=== PATIENT | male | born 1970 | race Two or more races ===

== ENCOUNTER 2021-07-04 07:31 | Emergency (ER) | payer OTHER ==
[~2021-07-04] VITALS: Ht 177.8 cm; Wt 104.3 kg
[2021-07-04] MEDS ORDERED: PLAVIX75 MG PO (07:43)
[2021-07-04] MEDS ORDERED: ADULT LOW DOSE81 M1 PO (07:43)
[2021-07-04] MEDS ORDERED: TOPROL XL25 M1 PO (07:44)
[2021-07-04] MEDS ORDERED: NITRO-TIME2.5 MG (07:44)
[2021-07-04] MEDS ORDERED: ATORVASTATIN CA20 MG PO (07:45)
[2021-07-04] MEDS ORDERED: ZESTRIL2.5 MG PO (07:45)
== END 2021-07-04 14:23 | disposition home or self-care (01) ==
LOC: ER 07:31
DX: K52.89 Other specified noninfective gastroenteritis and colitis (principal); R10.31 Right lower quadrant pain; Z20.822 Contact with and (suspected) exposure to COVID-19

== ENCOUNTER 2023-07-17 13:58 | Emergency (ER) | payer OTHER ==
[~2023-07-17] VITALS: Ht 177.8 cm; Wt 103.0 kg
[~2023-07-17 13:58] MED LIST: ADULT LOW DOSE81 M1 PO; ATORVASTATIN CA20 MG PO; NITRO-TIME2.5 MG; PLAVIX75 MG PO; TOPROL XL25 M1 PO; ZESTRIL2.5 MG PO
[2023-07-17 16:42] LABS: HEMATOCRIT 45.9 % (39.0-48.0); HEMOGLOBIN 15.4 g/dL (13-16.00); MEAN CELL VOLUME 88.6 fL (80.0-100.00); MEAN CORPUSCULAR HEMOGLOBIN 29.7 pg (27.00-32.0); MEAN CORPUSCULAR HGB CONC 33.6 g/dl (32.0-36.0); PLATELET COUNT 233 K/uL (150-450); RED BLOOD COUNT 5.17 M/uL (4.00-6.00); RED CELL DISTRIBUTION WIDTH 13.4 % (11.5-14.5)
== END 2023-07-17 17:35 | disposition home or self-care (01) ==
LOC: ER 13:58
PROVIDERS: Emergency Medicine
DX: J06.9 Acute upper respiratory infection, unspecified (principal); I11.9 Hypertensive heart disease without heart failure; E11.9 Type 2 diabetes mellitus without complications; Z88.0 Allergy status to penicillin; Z20.822 Contact with and (suspected) exposure to COVID-19

== ENCOUNTER 2023-10-04 08:36 | Emergency (ER) | payer OTHER ==
[~2023-10-04] VITALS: Ht 177.8 cm; Wt 102.1 kg
[2023-10-04] MEDS ORDERED: PROMETHAZINE HCL 50 MG/ML AMPUL IM STA (10:02)
[2023-10-04] MEDS ORDERED: MEPERIDINE HCL/PF 50 MG/ML VIAL IM SCH (10:15)
[2023-10-04 10:30] LABS: PH,URINE 5.5 (5.0-8.0); URINE APPEARANCE Clear; URINE BILIRRUBIN Negative (NEGATIVE); URINE BLOOD Large; URINE COLOR Dark Yellow; URINE GLUCOSE Negative (NEGATIVE); URINE LEUKOCYTE Negative; URINE NITRATE Negative; URINE PROTEIN Trace (NEGATIVE); URINE UROBILINOGEN 0.2 E.U./dl
[2023-10-04 10:31] LABS: URINE BACTERIA 13.8 uL (0.0-1933); URINE EPITHELIAL CELLS 14.6 uL (0.0-38.8); URINE RBC 30.3 uL (0.0-20.8); URINE WBC 8.4 uL (0.0-23.2)
[2023-10-04 10:35] LABS: CALCIUM 9.3 mg/dL (8.5-10.1); CREATININE SERUM 0.94 mg/dL (0.70-1.30); GFR 84.27; POTASSIUM 4.4 mEq/L (3.5-5.1)
[2023-10-04 10:47] LABS: HEMATOCRIT 43.9 % (39.0-48.0); HEMOGLOBIN 14.6 g/dL (13-16.00); MEAN CELL VOLUME 88.6 fL (80.0-100.00); MEAN CORPUSCULAR HEMOGLOBIN 29.5 pg (27.00-32.0); MEAN CORPUSCULAR HGB CONC 33.3 g/dl (32.0-36.0); PLATELET COUNT 254 K/uL (150-450); RED BLOOD COUNT 4.95 M/uL (4.00-6.00); RED CELL DISTRIBUTION WIDTH 13.7 % (11.5-14.5)
== END 2023-10-04 11:43 | disposition home or self-care (01) ==
LOC: ER 08:36
PROVIDERS: General Practice
DX: R10.9 Unspecified abdominal pain (principal); I50.9 Heart failure, unspecified; I20.89 Other forms of angina pectoris; E78.00 Pure hypercholesterolemia, unspecified; Z88.0 Allergy status to penicillin; E11.9 Type 2 diabetes mellitus without complications
CPT/HCPCS: 36415; 74176; 96372; 99284; J2250; J3490

== ENCOUNTER 2024-01-07 06:40 | Emergency (ER) | payer OTHER ==
[~2024-01-07] VITALS: Ht 177.8 cm; Wt 102.1 kg
[2024-01-07] MEDS ORDERED: METFORMIN HCL1000 M3 PO (07:54)
[2024-01-07] MEDS ORDERED: SILVADENE20 GM TOP (10:30)
[2024-01-07] MEDS ORDERED: LEVOFLOXACIN500 MG PO (10:30)
== END 2024-01-07 10:36 | disposition home or self-care (01) ==
LOC: ER 06:41
DX: L03.115 Cellulitis of right lower limb (principal); Z88.0 Allergy status to penicillin; R21 Rash and other nonspecific skin eruption; I10 Essential (primary) hypertension; E11.9 Type 2 diabetes mellitus without complications; Z79.84 Long term (current) use of oral hypoglycemic drugs

== ENCOUNTER 2024-07-23 14:17 | Emergency (ER) | payer OTHER ==
[~2024-07-23] VITALS: Ht 177.8 cm; Wt 102.1 kg
[~2024-07-23 14:17] MED LIST changes: +LEVOFLOXACIN500 MG PO; +METFORMIN HCL1000 M3 PO; +SILVADENE20 GM TOP
[2024-07-23 18:37] LABS: HEMATOCRIT 45.3 % (39.0-48.0); MEAN CELL VOLUME 87.7 fL (80.0-100.00); MEAN CORPUSCULAR HGB CONC 33.1 g/dl (32.0-36.0); PLATELET COUNT 256 K/uL (150-450); RED BLOOD COUNT 5.17 M/uL (4.00-6.00); RED CELL DISTRIBUTION WIDTH 13.9 % (11.5-14.5)
[2024-07-23] MEDS ORDERED: ROBITUSSIN HON237 ML PO (19:54)
[2024-07-23] MEDS ORDERED: VITAMIN C1500 MG PO (19:55)
== END 2024-07-23 22:12 | disposition home or self-care (01) ==
LOC: ER 14:19
DX: J40 Bronchitis, not specified as acute or chronic (principal); Z88.0 Allergy status to penicillin; I10 Essential (primary) hypertension; Z20.822 Contact with and (suspected) exposure to COVID-19